=== PATIENT | male | born 1930 | race Two or more races ===

== ENCOUNTER → 2016-05-02 | Outpatient (CLI) | payer MEDICARE, OTHER ==
[~2016-05-02] VITALS: Ht 165.1 cm; Wt 96.0 kg
[~2016-05-02] MED LIST: ASCO10007 PO; ATEN50TA PO; CALC-691 PO; CHL25 PO; CYAN250010 PO; DIGO-34 PO; FISH OIL PO; FOLI0.8T PO; FURO20 PO; GARL200T PO; LYSI500T PO; MAGN250T PO; MILK500C PO; MULT1TAB70 PO; NATTOKINASE PO; THIO200T2 PO; UBID100C10 PO; VITA200T8 PO; VITAD1000 PO
[2016-05-02 11:52] VITALS: BP 151/57
== END | disposition home or self-care (01) ==
LOC: SRCNTR 11:46
PROVIDERS: ATTEND Hospitalist
DX: I10 Essential (primary) hypertension (principal); I48.91 Unspecified atrial fibrillation; I49.9 Cardiac arrhythmia, unspecified; E78.5 Hyperlipidemia, unspecified
CPT/HCPCS: G0463

== ENCOUNTER → 2016-05-21 | Outpatient (CLI) | payer MEDICARE, OTHER ==
[2016-05-21 12:17] LABS: DIGOXIN 0.68 ng/mL (0.90-2.00)
[2016-05-21 12:29] LABS: PROSTATE SPECIFIC ANTIGEN 5.43 ng/mL (0.00-4.00)
[2016-05-21 17:28] LABS: BILIRUBIN,TOTAL 1.4 mg/dL (0.1-1.0)
[2016-05-21 17:29] LABS: BILIRUBIN,DIRECT 0.5 mg/dL (0.00-0.20)
== END | disposition home or self-care (01) ==
LOC: LABPV 10:39
PROVIDERS: ATTEND Hospitalist
DX: I10 Essential (primary) hypertension (principal); R97.20 Elevated prostate specific antigen [PSA]; Z79.899 Other long term (current) drug therapy
CPT/HCPCS: 82247; 82248; 84153

== ENCOUNTER → 2016-05-29 | Outpatient (CLI) | payer MEDICARE, OTHER ==
[~2016-05-29] VITALS: Ht 165.1 cm; Wt 94.2 kg
[2016-05-29 11:45] VITALS: BP 139/68
== END | disposition home or self-care (01) ==
LOC: SRCNTR 10:46
PROVIDERS: ATTEND Internal Medicine Cardiovascular Disease
DX: I10 Essential (primary) hypertension (principal); I48.2 Chronic atrial fibrillation; I50.9 Heart failure, unspecified; E66.9 Obesity, unspecified; K92.2 Gastrointestinal hemorrhage, unspecified
CPT/HCPCS: G0463

== ENCOUNTER → 2016-09-05 | Outpatient (CLI) | payer MEDICARE, OTHER ==
[2016-09-05 12:57] LABS: ANION GAP 6 mmol/L (8-16); BILIRUBIN,TOTAL 1.2 mg/dL (0.1-1.0); CALCIUM, TOTAL 9.4 mg/dL (8.8-10.5); CARBON DIOXIDE 31 mmol/L (22-29); CHLORIDE 103 mmol/L (98-107); CREATININE 1.08 mg/dL (0.60-1.30); GLOMERULAR FILTR. RATE CALC > 60 mL/min (>60); SODIUM SERUM 140 mmol/L (136-145); UREA NITROGEN, BLOOD 34 mg/dL (7-18)
[2016-09-05 13:10] LABS: PROSTATE SPECIFIC ANTIGEN 7.16 ng/mL (0.00-4.00)
== END | disposition home or self-care (01) ==
LOC: LABPV 09:18
PROVIDERS: ATTEND Hospitalist
DX: R97.20 Elevated prostate specific antigen [PSA] (principal)
CPT/HCPCS: 82247; 84153

== ENCOUNTER → 2016-11-15 | Outpatient (CLI) | payer MEDICARE, OTHER ==
[~2016-11-15] VITALS: Ht 172.7 cm; Wt 91.0 kg
[~2016-11-15] MED LIST changes: -MAGN250T PO; +MAGN250T2 PO; +TUBERCULIN, PURIFIED PROTEIN DERIVATIVE 5 TU/0.1 ML SYG ID ONE
[2016-11-15 11:57] VITALS: BP 150/75
== END | disposition home or self-care (01) ==
LOC: SRCNTR 08:22
PROVIDERS: ATTEND Hospitalist
DX: Z23 Encounter for immunization (principal)
CPT/HCPCS: G0463

== ENCOUNTER → 2016-11-18 | Outpatient (CLI) | payer MEDICARE, OTHER ==
[~2016-11-18] MED LIST changes: -TUBERCULIN, PURIFIED PROTEIN DERIVATIVE 5 TU/0.1 ML SYG ID ONE
== END | disposition home or self-care (01) ==
LOC: SRCNTR 08:30
PROVIDERS: ATTEND Hospitalist
DX: R76.11 Nonspecific reaction to tuberculin skin test without active tuberculosis (principal)
CPT/HCPCS: G0463

== ENCOUNTER → 2016-11-27 | Outpatient (CLI) | payer MEDICARE, OTHER ==
[~2016-11-27] VITALS: Ht 172.7 cm; Wt 87.5 kg
[2016-11-27 11:27] VITALS: BP 169/75
== END | disposition home or self-care (01) ==
LOC: SRCNTR 11:01
PROVIDERS: ATTEND Internal Medicine Cardiovascular Disease
DX: I11.0 Hypertensive heart disease with heart failure (principal); I50.9 Heart failure, unspecified; I48.2 Chronic atrial fibrillation; E66.9 Obesity, unspecified; R97.20 Elevated prostate specific antigen [PSA]; Z87.19 Personal history of other diseases of the digestive system
CPT/HCPCS: G0463